=== PATIENT | female | born 1965 | race Caucasian/White ===

== ENCOUNTER 2018-06-27 20:43 | Emergency (ER) | payer MEDICAID ==
[~2018-06-27] VITALS: Ht 162.6 cm; Wt 77.1 kg
[2018-06-27 20:50] VITALS: BP_SYST 165
--- NOTE | 2018-06-27 20:50 | NUR ---
Placed in room 2 . Placed on radiation monitor, blood pressure machine and pulse oximeter. To gown for exam. Side rails up. Triaged at bedside.
--- NOTE | 2018-06-27 21:04 | NUR ---
ER Dr. Roe at bedside examining patient.
[2018-06-27] MEDS ORDERED: LevALBUTEROL HCL 1.25 MG/0.5 ML *CONC.* VIAL.NEB (XOPENEX CONC.) INH ONE (21:15)
[2018-06-27] MEDS ORDERED: PROMETHAZINE 6.25 MG/ CODEINE 10 MG/ 5 ML PO ONE ×2 (21:15→22:30)
--- NOTE | 2018-06-27 21:19 | NUR ---
Medication was given, pt tolerated well. No adverse reaction, will continue to monitor.
--- NOTE | 2018-06-27 21:25 | NUR ---
RT at bedside, administering breathing treatment. Pt tolerated well.
--- NOTE | 2018-06-27 21:29 | NUR ---
Xray at bedside, pt tolerated well.
--- NOTE | 2018-06-27 22:24 | NUR ---
ER Dr. Roe at bedside explaining results to patient.
[2018-06-27] MEDS ORDERED: ONDANSETRON 4 MG ODT TAB PO ONE (22:30)
[2018-06-27] MEDS ORDERED: PANTOPRAZOLE SODIUM 40 MG TAB PO ONE (22:30)
--- NOTE | 2018-06-27 22:51 | NUR ---
Medications were given, pt tolerated well. No adverse reaction, will continue to monitor.
[2018-06-27 23:19] VITALS: BP_SYST 145
--- NOTE | 2018-06-27 23:19 | NUR ---
Patient given written and verbal discharge instructions and verbalizes understanding. ER MD discussed with patient the results and treatment provided. Patient in stable condition. Pt kept ID arm band. Rx of Tessalon, Zofran, Protonix given. Patient educated on pain management and to follow up with PMD. Pain Scale 0. Opportunity for questions provided and answered. Medication side effect fact sheet provided.
== END 2018-06-27 23:19 | disposition home or self-care (01) ==
LOC: SED 20:43
DX: R05 Cough (principal); I10 Essential (primary) hypertension
CPT/HCPCS: 71045; 94640; 99284; J7612; Q0162

== ENCOUNTER 2020-02-09 11:10 | Emergency (ER) | payer MEDICAID, SELFPAY ==
[~2020-02-09] VITALS: Ht 160 cm; Wt 77.1 kg
[2020-02-09 11:23] VITALS: BP_SYST 121
--- NOTE | 2020-02-09 11:23 | NUR ---
Pt placed in the tent
--- NOTE | 2020-02-09 11:24 | NUR ---
Pt brought by self, A&Ox4, pt presents to ER with cough/sore throat and bodyaches, skin pink and warm, cap refill <3, temp 98.6 , O2 97%.
--- NOTE | 2020-02-09 11:30 | NUR ---
Dr Fowler assessing patient in the tent
--- NOTE | 2020-02-09 12:14 | NUR ---
Latrice taveras in [facility] - 02/09/20 at 1216 by [email or web address] Patient to [facility] to for evaluation. Side rails up.
[2020-02-09 12:55] VITALS: BP_SYST 121
--- NOTE | 2020-02-09 12:56 | NUR ---
Patient given written and verbal discharge instructions and verbalizes understanding. ER MD discussed with patient the results and treatment provided. Patient in stable condition. ID arm band removed. No Rx given. Patient educated on pain management and to follow up with PMD. Pain Scale 0/10 . Opportunity for questions provided and answered. Medication side effect fact sheet provided.
[2020-02-15] MEDS ORDERED: ESCI10TA PO (06:40)
[2020-02-15] MEDS ORDERED: HYDR200T80 PO (06:40)
[2020-02-15] MEDS ORDERED: PRAM0.253 PO (06:40)
== END 2020-02-09 12:56 | disposition home or self-care (01) ==
LOC: SED 11:10
DX: U07.1 COVID-19 (principal); R05 Cough; R09.81 Nasal congestion; M79.18 Myalgia, other site
CPT/HCPCS: 71045; 99284; C9803; U0003

== ENCOUNTER 2020-02-09 14:43 | Emergency (ER) | payer MEDICAID, SELFPAY ==
[~2020-02-09] VITALS: Ht 167.6 cm; Wt 77.1 kg
[2020-02-09 14:45] VITALS: BP_SYST 127
--- NOTE | 2020-02-09 14:45 | NUR ---
Pt placed on tent
--- NOTE | 2020-02-09 14:46 | NUR ---
Pt brought by self , A&O x4, pt presents to ER for CT scan as suggested per X-ray, skin pink and warm, cap refill <3, afebrile, VS WNL, will cont to monitor.
--- NOTE | 2020-02-09 14:57 | NUR ---
Dr Fowler evaluating patient in the tent
[2020-02-09 15:37] VITALS: BP_SYST 125
--- NOTE | 2020-02-09 15:38 | NUR ---
Patient given written and verbal discharge instructions and verbalizes understanding. ER MD discussed with patient the results and treatment provided. Patient in stable condition. ID arm band removed. No Rx given. Patient educated on pain management and to follow up with PMD. Pain Scale 0/10. Opportunity for questions provided and answered. Medication side effect fact sheet provided.
== END 2020-02-09 15:38 | disposition home or self-care (01) ==
LOC: SED 14:43
DX: R05 Cough (principal); R09.81 Nasal congestion; M79.18 Myalgia, other site; Z20.828 Contact with and (suspected) exposure to other viral communicable diseases
CPT/HCPCS: 71250-TC; 99284

== ENCOUNTER 2020-11-08 21:30 | Emergency (ER) | payer MEDICAID, SELFPAY ==
[~2020-11-08] VITALS: Ht 162.6 cm; Wt 79.4 kg
[~2020-11-08 21:30] MED LIST: APIX2.5T PO; DEC4 PO; ESCI10TA PO; LORA2TAB95 PO; PRAM0.253 PO; ZIT250 PO
[2020-11-08 21:35] VITALS: BP_SYST 150
[2020-11-08] MEDS ORDERED: KETOROLAC TROMETHAMINE 30 MG VIAL IVP ONE (22:15)
[2020-11-08] MEDS ORDERED: ONDANSETRON HCL 4 MG/2 ML VIAL IVP ONE (22:15)
[2020-11-08 22:19] LABS: BILIRUBIN,URINE NEGATIVE (NEGATIVE); BLOOD, URINE NEGATIVE (NEGATIVE); CLARITY/URINE CLEAR (CLEAR); COLOR,URINE YELLOW (YELLOW); GLUCOSE,URINE NEGATIVE (NEGATIVE); KETONES,URINE NEGATIVE (NEGATIVE); LEUKOCYTE ESTERASE ,URINE TRACE (NEGATIVE); NITRITE, URINE NEGATIVE (NEGATIVE); PH,URINE 6.5 (5.0-8.0); PROTEIN URINE NEGATIVE (NEGATIVE); UROBILINOGEN,URINE 0.2 (0.2-1.0)
[2020-11-08] MEDS ORDERED: HYDR-3917 PO (22:19)
[2020-11-08] MEDS ORDERED: IBUP-1971 PO (22:19)
[2020-11-08] MEDS ORDERED: ONDA4TAB5 PO (22:19)
[2020-11-08 22:29] LABS: BACTERIA,URINE None Seen /HPF (None Seen); CALCIUM OXALATE CRYSTALS,UR None Seen /HPF (None Seen); CALCIUM PHOSPHATE CRYSTALS,UR None Seen /HPF (None Seen); RBC,URINE NONE SEEN /HPF (0-3); TRICHOMONAS,URINE None Seen /HPF (None Seen); WBC,URINE 0-3 /HPF (0-3); YEAST,URINE None Seen /HPF (None Seen)
[2020-11-08 23:00] VITALS: BP_SYST 132
== END 2020-11-08 23:00 | disposition home or self-care (01) ==
LOC: SED 21:30
DX: R51.9 Headache, unspecified (principal); R11.2 Nausea with vomiting, unspecified; Z79.899 Other long term (current) drug therapy
CPT/HCPCS: 70450; 76376; 81000; 96374; 96375; 99284; J1885; J2405

== ENCOUNTER 2021-02-18 14:20 | Emergency (ER) | payer MEDICAID, SELFPAY ==
[~2021-02-18] VITALS: Ht 162.6 cm; Wt 78.9 kg
[~2021-02-18 14:20] MED LIST changes: +HYDR-3917 PO; +IBUP-1971 PO; +ONDA4TAB5 PO
[2021-02-18] MEDS ORDERED: LORazepam 1 MG TABLET PO ONE (15:15)
[2021-02-18 16:20] VITALS: BP_SYST 155
--- NOTE | 2021-02-18 16:20 | NUR ---
PT TO REMAIN IN ER LOBBY UNTIL ER BED BECOMES AVAILABLE.
[2021-02-18 16:56] LABS: BASOPHILS % (AUTO) 0.6 % (0.0-2.0); EOSINOPHILS # (AUTO) 0.1 K/uL (0.0-0.4); EOSINOPHILS % (AUTO) 1.5 % (0.0-4.0); HEMATOCRIT 41.8 % (36-48); HEMOGLOBIN 13.6 g/dL (12.0-16.0); LYMPHOCYTES % (AUTO) 33.6 % (20.5-51.5); MEAN CORPUSCULAR HEMOGLOBIN 25 pg (27-31); MEAN CORPUSCULAR HGB CONC 33 % (32-36); MEAN CORPUSCULAR VOLUME 77 fL (79.0-98.0); MONOCYTES # (AUTO) 0.5 K/uL (0.0-1.0); MONOCYTES % (AUTO) 5.7 % (1.7-9.3); NEUTROPHILS # (AUTO) 5.2 K/uL (1.8-7.7); NEUTROPHILS % (AUTO) 58.6 % (40.0-70.0); PLATELET COUNT (AUTO) 242 K/uL (130-430); RED CELL DISTRIBUTION WIDTH 14.2 % (9.0-15.0); WHITE BLOOD COUNT (AUTO) 8.8 K/uL (4.8-10.8)
[2021-02-18 17:34] LABS: INR 0.9 (0.8-1.2); PROTHROMBIN TIME 9.9 SECS (9.5-12.5)
[2021-02-18 17:52] LABS: CALCIUM 9.6 mg/dL (8.4-11.0); CREATININE 0.58 mg/dL (0.55-1.30); TOTAL BILIRUBIN 0.3 mg/dL (0.0-1.0)
[2021-02-18 17:53] LABS: ALBUMIN 4.2 g/dL (3.4-4.8)
--- NOTE | 2021-02-18 17:55 | NUR ---
Pt to bed 2 for evaluation. Pt gowned and attached to monitor. Report given to WALI Garcia who will assume care.
--- NOTE | 2021-02-18 18:00 | NUR ---
ER at bedside examining patient.
--- NOTE | 2021-02-18 18:00 | NUR ---
Pt. here with c/o heart palpitations, states she has been getting them since she had covid 8 months ago, states she was very ill and now has alot of stress and anxiety.
[2021-02-18] MEDS ORDERED: LORA-259 PO (18:04)
[2021-02-18 18:13] VITALS: BP_SYST 122
--- NOTE | 2021-02-18 18:13 | NUR ---
Patient given written and verbal discharge instructions and verbalizes understanding. Dr. Witt discussed with patient the results and treatment provided. Patient in stable condition. ID arm band removed. Rx of Ativan given. Patient educated on pain management and to follow up with PMD. Pain Scale 0. Opportunity for questions provided and answered. Medication side effect fact sheet provided.
== END 2021-02-18 18:13 | disposition home or self-care (01) ==
LOC: SED 14:20
DX: F41.9 Anxiety disorder, unspecified (principal); Z79.899 Other long term (current) drug therapy
CPT/HCPCS: 36415; 71045; 80053; 84484; 84703; 85025; 85610-TC; 85730-TC; 93005; 99285

== ENCOUNTER 2021-10-05 18:55 | Emergency (ER) | payer MEDICAID ==
[~2021-10-05] VITALS: Ht 165.1 cm; Wt 81.6 kg
[~2021-10-05 18:55] MED LIST changes: +LORA-259 PO
[2021-10-05 19:19] VITALS: BP_SYST 118
[2021-10-05 19:55] LABS: BASOPHILS # (AUTO) 0.2 K/uL (0.0-0.2); BASOPHILS % (AUTO) 1.7 % (0.0-2.0); EOSINOPHILS # (AUTO) 0.2 K/uL (0.0-0.4); HEMATOCRIT 40.9 % (36-48); HEMOGLOBIN 13.4 g/dL (12.0-16.0); LYMPHOCYTES # (AUTO) 2.5 K/uL (1.0-5.5); LYMPHOCYTES % (AUTO) 27.9 % (20.5-51.5); MEAN CORPUSCULAR HEMOGLOBIN 25 pg (27-31); MEAN CORPUSCULAR HGB CONC 33 % (32-36); MEAN CORPUSCULAR VOLUME 77 fL (79.0-98.0); MONOCYTES # (AUTO) 0.4 K/uL (0.0-1.0); MONOCYTES % (AUTO) 4.7 % (1.7-9.3); NEUTROPHILS # (AUTO) 5.8 K/uL (1.8-7.7); NEUTROPHILS % (AUTO) 63.7 % (40.0-70.0); PLATELET COUNT (AUTO) 229 K/uL (130-430); RED BLOOD CELL COUNT(AUTO) 5.33 MIL/uL (4.2-6.2); RED CELL DISTRIBUTION WIDTH 13.7 % (9.0-15.0)
[2021-10-05 20:02] LABS: CALCIUM 9.8 mg/dL (8.4-11.0); CREATININE 0.65 mg/dL (0.55-1.30); POTASSIUM 3.5 mmol/L (3.5-5.1)
[2021-10-05 20:24] LABS: TOTAL BILIRUBIN 0.1 mg/dL (0.0-1.0)
[2021-10-05 20:54] VITALS: BP_SYST 118
== END 2021-10-05 20:54 | disposition home or self-care (01) ==
LOC: SED 18:55
DX: S70.11XA Contusion of right thigh, initial encounter (principal); S40.011A Contusion of right shoulder, initial encounter; Z79.899 Other long term (current) drug therapy; X58.XXXA Exposure to other specified factors, initial encounter; Y93.89 Activity, other specified; Y92.89 Other specified places as the place of occurrence of the external cause; Y99.8 Other external cause status
CPT/HCPCS: 36415; 80053; 85025; 99283

== ENCOUNTER 2023-02-28 20:15 | Emergency (ER) | payer MEDICAID ==
[~2023-02-28] VITALS: Ht 162.6 cm; Wt 78.0 kg
[2023-02-28 20:31] VITALS: BP_SYST 120; PULSE 74; RESP 16; TEMP 97; O2SAT 98
[2023-02-28 21:24] LABS: BASOPHILS % (AUTO) 0.4 % (0.0-2.0); EOSINOPHILS # (AUTO) 0.2 K/uL (0.0-0.4); EOSINOPHILS % (AUTO) 2.5 % (0.0-4.0); HEMATOCRIT 41.9 % (36-48); HEMOGLOBIN 13.6 g/dL (12.0-16.0); LYMPHOCYTES # (AUTO) 3.5 K/uL (1.0-5.5); LYMPHOCYTES % (AUTO) 36.4 % (20.5-51.5); MEAN CORPUSCULAR HEMOGLOBIN 25 pg (27-31); MEAN CORPUSCULAR HGB CONC 33 % (32-36); MEAN CORPUSCULAR VOLUME 78 fL (79.0-98.0); MONOCYTES # (AUTO) 0.7 K/uL (0.0-1.0); MONOCYTES % (AUTO) 7.3 % (1.7-9.3); NEUTROPHILS # (AUTO) 5.1 K/uL (1.8-7.7); NEUTROPHILS % (AUTO) 53.4 % (40.0-70.0); PLATELET COUNT (AUTO) 247 K/uL (130-430); RED BLOOD CELL COUNT(AUTO) 5.38 MIL/uL (4.2-6.2); WHITE BLOOD COUNT (AUTO) 9.6 K/uL (4.8-10.8)
[2023-02-28] MEDS ORDERED: ASPIRIN 81 MG TABLET(ECOTRIN) PO ONE (21:30)
[2023-02-28] MEDS ORDERED: KETOROLAC TROMETHAMINE 30 MG VIAL IVP ONE (21:30)
[2023-02-28 21:41] LABS: ANION GAP 7 (5-15); CALCIUM 8.6 mg/dL (8.4-11.0); CARBON DIOXIDE 28 mmol/L (23-29); CHLORIDE 107 mmol/L (98-107); CREATININE 0.68 mg/dL (0.55-1.30); GFR AFRICAN AMERICAN 115 mL/min (>90); GLUCOSE 107 mg/dL (74-106); POTASSIUM 4.1 mmol/L (3.5-5.1); SODIUM SERUM 142 mmol/L (136-145); UREA NITROGEN, BLOOD 18 mg/dL (8-21)
[2023-02-28 21:48] LABS: ALANINE AMINOTRANSFERASE 25 U/L (12-78); GFR NON AFRICAN-AMERICAN 95 mL/min (>90); TOTAL BILIRUBIN 0.3 mg/dL (0.0-1.0); TOTAL PROTEIN, SERUM 7.4 g/dL (6.4-8.3)
[2023-02-28 21:58] LABS: FREE T4 (FREE THYROXINE) 0.9 ng/dL (0.6-1.6); THYROID STIMULATING HORMONE 1.2 uIu/mL (0.34-4.82)
[2023-02-28 22:43] LABS: ASPARTATE AMINOTRANSFERASE 10 U/L (10-37)
[2023-02-28] MEDS ORDERED: IBUP-1971 PO (23:09)
[2023-02-28] MEDS ORDERED: VIS25 PO (23:09)
[2023-02-28 23:37] VITALS: BP_SYST 114; PULSE 68; RESP 18; TEMP 98.4; O2SAT 98
== END 2023-02-28 23:37 | disposition home or self-care (01) ==
LOC: SED 20:15
DX: R07.89 Other chest pain (principal); Z79.899 Other long term (current) drug therapy
CPT/HCPCS: 99285; 71045; 80053; 83880; 84439; 84443; 85025; 84484; 36415; 93005; 96372; J1885

== ENCOUNTER 2023-09-24 14:09 | Emergency (ER) | payer MEDICAID ==
[~2023-09-24] VITALS: Ht 162.6 cm; Wt 79.4 kg
[~2023-09-24 14:09] MED LIST changes: +VIS25 PO
[2023-09-24 14:10] VITALS: BP_SYST 121; PULSE 72; RESP 19; TEMP 98.2; O2SAT 98
[2023-09-24 14:59] LABS: BASOPHILS % (AUTO) 0.5 % (0.0-2.0); EOSINOPHILS # (AUTO) 0.2 K/uL (0.0-0.4); EOSINOPHILS % (AUTO) 2.6 % (0.0-4.0); HEMATOCRIT 38.5 % (36-48); HEMOGLOBIN 12.7 g/dL (12.0-16.0); LYMPHOCYTES # (AUTO) 2.9 K/uL (1.0-5.5); LYMPHOCYTES % (AUTO) 34.1 % (20.5-51.5); MEAN CORPUSCULAR HEMOGLOBIN 26 pg (27-31); MEAN CORPUSCULAR HGB CONC 33 % (32-36); MEAN CORPUSCULAR VOLUME 78 fL (79.0-98.0); MONOCYTES # (AUTO) 0.5 K/uL (0.0-1.0); MONOCYTES % (AUTO) 5.8 % (1.7-9.3); NEUTROPHILS # (AUTO) 4.8 K/uL (1.8-7.7); PLATELET COUNT (AUTO) 223 K/uL (130-430); RED BLOOD CELL COUNT(AUTO) 4.95 MIL/uL (4.2-6.2); WHITE BLOOD COUNT (AUTO) 8.4 K/uL (4.8-10.8)
[2023-09-24 15:14] LABS: ANION GAP 8 (5-15); CALCIUM 9.4 mg/dL (8.4-11.0); CARBON DIOXIDE 29 mmol/L (23-29); CHLORIDE 107 mmol/L (98-107); CREATININE 0.79 mg/dL (0.55-1.30); GFR AFRICAN AMERICAN 97 mL/min (>90); GLUCOSE 98 mg/dL (74-106); POTASSIUM 3.8 mmol/L (3.5-5.1); SODIUM SERUM 144 mmol/L (136-145); UREA NITROGEN, BLOOD 22 mg/dL (8-21)
[2023-09-24 15:15] LABS: GFR NON AFRICAN-AMERICAN 80 mL/min (>90)
[2023-09-24 17:34] VITALS: BP_SYST 120; PULSE 70; RESP 19; TEMP 98.2; O2SAT 98
== END 2023-09-24 17:34 | disposition home or self-care (01) ==
LOC: SED 14:09
DX: R07.9 Chest pain, unspecified (principal); R05.9 Cough, unspecified; R06.02 Shortness of breath; I10 Essential (primary) hypertension; Z79.899 Other long term (current) drug therapy
CPT/HCPCS: 36415; 80048; 84484; 85025; 85379; 93005; 99284

== ENCOUNTER 2023-10-27 07:26 | Day surgery (SDC) | payer MEDICAID ==
[~2023-10-27] VITALS: Ht 162.6 cm; Wt 77.1 kg
[~2023-10-27 07:26] MED LIST changes: +CEFAZOLIN SOD 2 GM in D5W 50 ML IV ONE; +IBUP-1969 PO
[2023-10-27] MEDS ORDERED: ACETAMINOPHEN 500 MG TABLET ONE (08:30)
[2023-10-27] MEDS ORDERED: CELECOXIB 100 MG CAPSULE ONE (08:30)
[2023-10-27] MEDS: ACETAMINOPHEN 500 MG TABLET PO ONE (08:59)
[2023-10-27] MEDS: CELECOXIB 100 MG CAPSULE PO ONE (08:59)
[2023-10-27] MEDS ORDERED: ROPIVACAINE HCL/PF 5 MG/ML 0.5% 30 ML VIAL ONE (10:18)
[2023-10-27] MEDS ORDERED: LR 1,000 ML IV.SOLN IV ONE (10:18)
[2023-10-27] MEDS ORDERED: PROPOFOL 200MG/ 20ML VIAL (DIPRIVAN) IV ONE (10:18)
[2023-10-27] MEDS ORDERED: BUPIVACAINE /PF 0.25% 30 ML VIAL INJ ONE (10:18)
[2023-10-27] MEDS ORDERED: WATER FOR IRRIGATION,STERILE 1,000 ML IRRIG.SOLN IR ONE (10:18)
[2023-10-27] MEDS ORDERED: NS IRRIG SOLN 1000 ML IR ONE (10:18)
[2023-10-27] MEDS ORDERED: ONDANSETRON HCL 4 MG/2 ML VIAL ONE (10:18)
[2023-10-27] MEDS ORDERED: LIDOCAINE 1% 10 MG/ML, 20 ML MDV ONE (10:18)
[2023-10-27] MEDS ORDERED: MIDAZOLAM HCL 2 MG/2 ML VIAL (VERSED) ONE (10:19)
[2023-10-27] MEDS ORDERED: PROPOFOL DRIP 100 ML IV ONE (10:19)
[2023-10-27 10:30] VITALS: O2SAT 98
[2023-10-27] MEDS ORDERED: fentaNYL CITRATE/PF 100 MCG/2 ML AMP ONE (11:15)
[2023-10-27] MEDS ORDERED: LR 1,000 ML IV ONE (11:15)
[2023-10-27] MEDS ORDERED: fentaNYL CITRATE/PF 100 MCG/2 ML AMP IVP PRN ×2 (11:15)
[2023-10-27] MEDS ORDERED: ONDANSETRON HCL 4 MG/2 ML VIAL IVP PRN (11:15)
[2023-10-27] MEDS ORDERED: HYDROmorphone 1 MG/ML INJ. CARTRIDGE ONE (13:17)
[2023-10-27] MEDS: HYDROmorphone 1 MG/ML INJ. CARTRIDGE IVP PRN (13:21)
[2023-10-27 15:58] VITALS: BP_SYST 133; PULSE 77; RESP 17
== END 2023-10-27 14:51 | disposition home or self-care (01) ==
LOC: SDS 07:26 → SMU 07:26 → SDS 14:51
PROVIDERS: ATTEND Student in an Organized Health Care Education/Training Program
DX: S52.571A Other intraarticular fracture of lower end of right radius, initial encounter for closed fracture (principal); I10 Essential (primary) hypertension; F32.A Depression, unspecified; Z98.890 Other specified postprocedural states; Z79.899 Other long term (current) drug therapy; X58.XXXA Exposure to other specified factors, initial encounter; Y93.89 Activity, other specified; Y92.89 Other specified places as the place of occurrence of the external cause; Y99.8 Other external cause status
CPT/HCPCS: 87081; 64415; 25609; J3490; J0690; J3465; J2405; J2704 ×2; J1170; J7060; J7120; C1769; C1713 ×6; 76001; J2001; J3010

== ENCOUNTER 2024-01-25 09:59 | Emergency (ER) | payer MEDICAID ==
[~2024-01-25] VITALS: Ht 162.6 cm; Wt 79.4 kg
[~2024-01-25 09:59] MED LIST changes: -CEFAZOLIN SOD 2 GM in D5W 50 ML IV ONE
[2024-01-25 10:03] VITALS: BP_SYST 136; PULSE 72; RESP 18; TEMP 98.3; O2SAT 96
[2024-01-25 10:33] LABS: BASOPHILS % (AUTO) 0.5 % (0.0-2.0); EOSINOPHILS # (AUTO) 0.2 K/uL (0.0-0.4); EOSINOPHILS % (AUTO) 2.7 % (0.0-4.0); HEMATOCRIT 41.9 % (36-48); HEMOGLOBIN 13.6 g/dL (12.0-16.0); LYMPHOCYTES # (AUTO) 2.9 K/uL (1.0-5.5); LYMPHOCYTES % (AUTO) 38.8 % (20.5-51.5); MEAN CORPUSCULAR HEMOGLOBIN 25 pg (27-31); MEAN CORPUSCULAR HGB CONC 33 % (32-36); MEAN CORPUSCULAR VOLUME 78 fL (79.0-98.0); MONOCYTES # (AUTO) 0.4 K/uL (0.0-1.0); NEUTROPHILS # (AUTO) 3.9 K/uL (1.8-7.7); PLATELET COUNT (AUTO) 231 K/uL (130-430); RED BLOOD CELL COUNT(AUTO) 5.39 MIL/uL (4.2-6.2); RED CELL DISTRIBUTION WIDTH 14.5 % (9.0-15.0); WHITE BLOOD COUNT (AUTO) 7.4 K/uL (4.8-10.8)
[2024-01-25 11:07] LABS: ANION GAP 8 (5-15); CALCIUM 9.4 mg/dL (8.4-11.0); CARBON DIOXIDE 26 mmol/L (23-29); CHLORIDE 104 mmol/L (98-107); CREATININE 0.64 mg/dL (0.55-1.30); GFR AFRICAN AMERICAN 123 mL/min (>90); GFR NON AFRICAN-AMERICAN 102 mL/min (>90); GLUCOSE 99 mg/dL (74-106); SODIUM SERUM 138 mmol/L (136-145); UREA NITROGEN, BLOOD 15 mg/dL (8-21)
[2024-01-25] MEDS: ASPIRIN 325 MG TABLET PO ONE (11:19)
[2024-01-25] MEDS: LORazepam 1 MG TABLET PO ONE ×2 (11:19→11:55)
[2024-01-25 11:58] VITALS: BP_SYST 136; PULSE 72; RESP 18; TEMP 98.3; O2SAT 96
[2024-01-25] MEDS ORDERED: LORA-259 PO (12:11)
== END 2024-01-25 12:25 | disposition home or self-care (01) ==
LOC: SED 09:59
DX: F41.0 Panic disorder [episodic paroxysmal anxiety] (principal); R07.9 Chest pain, unspecified; I10 Essential (primary) hypertension
CPT/HCPCS: 36415; 80048; 84484; 85025; 85379; 93005; 99284